=== PATIENT | male | born 1955 | race Caucasian/White ===

== ENCOUNTER → 2019-06-13 | Outpatient (CLI) | payer OTHER ==
[2019-06-13 12:40] LABS: CALCIUM 9.2 mg/dL (8.5-10.1); CREATININE 1.2 mg/dL (0.6-1.3); POTASSIUM 4.6 mmol/L (3.5-5.1)
== END ==
LOC: M.LAB 11:24
PROVIDERS: Registered Nurse
DX: I25.10 Atherosclerotic heart disease of native coronary artery without angina pectoris (principal)

== ENCOUNTER 2019-06-28 09:28 | Observation (INO) | payer OTHER ==
[~2019-06-28] VITALS: Ht 182.9 cm; Wt 127.0 kg
[2019-06-28] VITALS (12 sets, daily range): BP systolic 95–125; BP diastolic 54–79
--- NOTE | ~2019-06-28 | H ---
[address] [address] HISTORY AND PHYSICAL Name: ROMAN IVORY II Room: [address] Johnathon Arteaga#: [id number] Admission: 06/28/19 Attend Phys: Alex Conti MD, Discharge: 06/29/19 Date of : 57 Report #: [id number] THIS REPORT FOR: //name// Please refer to the History and Physical performed in the physician's office. By: [id number] Records Staff DILIA /THAIS
[2019-06-28] MEDS ORDERED: LIPITOR 20 MG T20 M1 PO (09:37)
[2019-06-28] MEDS ORDERED: COREG12.5 MG PO (09:39)
[2019-06-28] MEDS ORDERED: VITAMIN D31000 UNIT PO (09:47)
[2019-06-28] MEDS ORDERED: INVOKANA300 MG PO (09:48)
[2019-06-28] MEDS ORDERED: PLAVIX 75 MG TA75 MG PO (09:49)
[2019-06-28] MEDS ORDERED: LASIX 40 MG TAB40 MG PO (09:49)
[2019-06-28] MEDS ORDERED: POTASSIUM20 PO (09:50)
[2019-06-28] MEDS ORDERED: ISOSORBIDE DINI30 MG PO (09:51)
[2019-06-28] MEDS ORDERED: OLMESARTAN-HCT1 EACH PO (09:52)
[2019-06-28] MEDS ORDERED: FLOMAX0.4 MG PO (09:53)
[2019-06-28 10:25] LABS: HEMATOCRIT 40.6 % (42.0-52.0); HEMOGLOBIN 13.7 gm/dL (14.0-18.0); MCH 27.6 pg (26.0-34.0); MCHC 33.8 g/dL (28.0-37.0); MCV 81.6 fL (80.0-100.0); MPV 7.7 fl. (7.2-11.1); RBC 4.98 mil/uL (4.50-6.00); RDW-CV 15.7 % (10.5-14.5); WBC 7.2 thou/uL (4.0-11.0)
[2019-06-28] MEDS ORDERED: TRESIBA FL100 UNIT/1 SUBQ (10:28)
[2019-06-28] MEDS ORDERED: HUMALOG100 UNIT/1 SUBQ (10:30)
[2019-06-28 10:33] LABS: ANION GAP 6 mmol/L (7-16); BUN 18 mg/dL (7-18); CALCIUM 9.1 mg/dL (8.5-10.1); CHLORIDE 105 mmol/L (98-107); CO2 30 mmol/L (21-32); CREATININE 1.1 mg/dL (0.6-1.3); GLUCOSE 119 mg/dL (70-99); POTASSIUM 4.2 mmol/L (3.5-5.1); SODIUM 141 mmol/L (136-145)
[2019-06-28 10:34] LABS: APTT 28.3 Seconds (25.0-31.3); INR 1.1
[2019-06-28 10:37] LABS: ALBUMIN 3.3 g/dL (3.4-5.0); ALKALINE PHOSPHATASE 86 U/L (46-116); CHOLESTEROL 91 mg/dL (<200); HDL CHOLESTEROL 31 mg/dL (>40); LDL CHOLESTEROL 53 mg/dL (<100); SGOT 15 U/L (15-37); SGPT 32 U/L (30-65); TC:HDL 2.9 Ratio (Not establshd); TOTAL BILIRUBIN 0.9 mg/dL (<0.1-1.0); TOTAL PROTEIN 7.5 g/dL (6.4-8.2); TRIGLYCERIDE 39 mg/dL (<150); VLDL 8 mg/dL (<40)
[2019-06-28 10:38] LABS: SERUM ASSESSMENT Clear
--- NOTE | 2019-06-28 11:03 | 2DMMODE ---
[place] [address] 2 D/M-MODE ECHOCARDIOGRAM Name: ROMAN IVORY II Room: [facility]#: [id number] Admission: 06/28/19 Attend Phys: Crystal Wong Discharge: Date of : 57 Date of Service: 06/28/19 1103 Report #: [id number] THIS REPORT FOR: //name// APPROVED REPORT Study performed: 06/28/2019 10:29:13 EXAM: Comprehensive 2D, Doppler, and color-flow Echocardiogram Patient Location: Out-Patient Status: routine BSA: 2.46 HR: 73 bpm BP: 103/61 mmHg Rhythm: NSR Other Information Study Quality: Good Indications Dyspnea 2D Dimensions IVSd: 10.72 (7-11mm) LVOT Diam: 22.54 (18-24mm) LVDd: 71.70 mm PWd: 10.84 (7-11mm) Ascending Ao: 37.05 (22-36mm) LVDs: 60.72 (25-40mm) Aortic Root: 37.40 mm Volumes Left Atrial Volume (Systole) LA ESV Index: 48.40 mL/m2 Aortic Valve AoV Peak Pankaj.: 1.08 m/s AO Peak Gr.: 4.69 mmHg LVOT Max P.30 mmHg AO Mean Gr.: 3.02 mmHg LVOT Mean P.15 mmHg LVOT Max V: 0.76 m/s AO V2 VTI: 21.02 cm LVOT Mean V: 0.49 m/s KESHAWN (VTI): 2.72 cm2 LVOT V1 VTI: 14.34 cm Mitral Valve E/A Ratio: 3.91 MV Decel. Time: 129.87 ms MV E Max Pankaj.: 1.12 m/[place] [address] 2 D/M-MODE ECHOCARDIOGRAM Name: ROMAN IVORY II Room: [facility]#: [id number] Admission: 06/28/19 Attend Phys: Crystal Wong Discharge: Date of : 57 Date of Service: 06/28/19 1103 Report #: [id number] MV PHT: 37.66 ms MVA (PHT): 5.84 cm2 TDI E/Lateral E': 11.20 E/Medial E': 18.67 Medial E' Pankaj.: 0.06 m/s Lateral E' Pankaj.: 0.10 m/s Pulmonary Valve PV Peak Pankaj.: 0.71 m/s PV Peak Gr.: 2.03 mmHg Tricuspid Valve RAP Estimate: 5.00 mmHg TR Peak Gr.: 30.72 mmHg RVSP: 35.00 mmHg PA Pressure: 35.00 mmHg Left Ventricle Left ventricle is moderately dilated. Regional wall motion abnormalities are noted with distal septal, apical, and inferobasilar akinesis. There is normal left ventricular wall thickness. Left ventricular systolic function is moderate to severely decreased. LVEF is 30%. Grade IV - fixed restrictive diastolic dysfunction. Right Ventricle The right ventricle is normal size. The right ventricular systolic function is normal. Atria Left atrium is moderately dilated. The right atrium size is normal. Aortic Valve Mild aortic valve sclerosis. No aortic regurgitation is present. There is no aortic valvular stenosis. Mitral Valve The mitral valve is normal in structure. Mild to moderate mitral regurgitation. No evidence of mitral valve stenosis. Tricuspid Valve The tricuspid valve is normal in structure. Mild tricuspid regurgitation. Mild pulmonary hypertension. Pulmonic Valve The pulmonary valve is normal in structure. There is no pulmonic [place] [address] 2 D/M-MODE ECHOCARDIOGRAM Name: CACHORROROMAN II Room: [facility]#: [id number] Admission: 06/28/19 Attend Phys: Crystal Wong Discharge: Date of : 57 Date of Service: 06/28/19 1103 Report #: [id number] Great Vessels The aortic root is normal in size. IVC is normal in size and collapses >50% with inspiration. Pericardium There is no pericardial effusion. <Conclusion> Left ventricle is moderately dilated. There is normal left ventricular wall thickness. Left ventricular systolic function is moderate to severely decreased. LVEF is 30%. Grade IV - fixed restrictive diastolic dysfunction. The right ventricle is normal size. Left atrium is moderately dilated. Mild aortic valve sclerosis. No aortic regurgitation is present. There is no aortic valvular stenosis. The mitral valve is normal in structure. Mild to moderate mitral regurgitation. The tricuspid valve is normal in structure. Mild tricuspid regurgitation. Mild pulmonary hypertension. IVC is normal in size and collapses >50% with inspiration. There is no pericardial effusion. Regional wall motion abnormalities are noted with distal septal, apical, and inferobasilar akinesis. <ELECTRONICALLY SIGNED> By: Alex Conti MD, FACC 06/28/19 1103 02 02 Alex Conti MD, FACC /INF
--- NOTE | 2019-06-28 11:41 | EKG ---
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1955 Requested By: Alex Conti Order Number: [id number] Reading MD: Karsten Fitch Measurements Intervals [place] Rate: 72 P: 41 VA: 228 QRS: -3 QRSD: 124 T: 89 QT: 418 QTc: 458 Interpretive Statements Sinus rhythm Prolonged VA interval Probable left atrial enlargement Anteroseptal infarct old, possible No previous ECG available for comparison Electronically Signed On 06-28-2019 11:40:49 MARKETING ADMINISTRATOR by Karsten Fitch [email or web address] <ELECTRONICALLY SIGNED> By: Karsten Fitch MD, [facility] 06/28/19 1140 1030 1030 Karsten Fitch MD, FACC /EPI
--- NOTE | 2019-06-28 14:53 | NUR ---
PT ARRIVED FROM DIGITAL MEDIA COORDINATOR AROUND 1400. ASSESSMENT COMPLETED CHARTED. VITAL SIGNS BEING COMPLETED PER PROTOCOL. ABLE TO MAKE NEEDS KNOWN. AT BEDSIDE. NO C/O PAIN OR DISCOMFORT. CATH SITE C/D/I WITH NO ISSUES. IV FLUIDS RUNNING PER EMAR. WILL CONTINUE TO MONITOR.
--- NOTE | 2019-06-28 15:43 | EKG ---
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 Specialist: : 1955 Requested By: Alex Conti Order Number: [id number] Jose J MD: Karsten Fitch Measurements Intervals [place] Rate: 73 P: 43 AR: 240 QRS: 2 QRSD: 117 T: 57 QT: 423 QTc: 467 Interpretive Statements Sinus rhythm Prolonged AR interval Probable left atrial enlargement Incomplete left bundle branch block Low voltage, extremity leads Consider anterior infarct Compared to ECG 06/28/2019 10:30:57 Left bundle-branch block now present Low QRS voltage now present Myocardial infarct finding still present Electronically Signed On 06-28-2019 15:43:49 SEGMENT PRODUCER by Karsten Fitch [email or web address] <ELECTRONICALLY SIGNED> By: Karsten Fitch MD, FACC 06/28/19 1543 1317 1317 Karsten Fitch MD, FACC /EPI
[2019-06-29 00:16] VITALS: BP 131/90
[2019-06-29 03:08] LABS: GLYCOHEMOGLOBIN (HGB A1C) 6.2 % (4.8-5.6)
[2019-06-29 03:36] LABS: HEMATOCRIT 41.1 % (42.0-52.0); HEMOGLOBIN 13.5 gm/dL (14.0-18.0); MCHC 32.8 g/dL (28.0-37.0); MCV 82.3 fL (80.0-100.0); MPV 7.3 fl. (7.2-11.1); RBC 4.99 mil/uL (4.50-6.00); RDW-CV 16.1 % (10.5-14.5); WBC 7.1 thou/uL (4.0-11.0)
[2019-06-29 03:50] LABS: ALBUMIN 3.2 g/dL (3.4-5.0); CALCIUM 9.1 mg/dL (8.5-10.1); CREATININE 1.1 mg/dL (0.6-1.3); POTASSIUM 4.7 mmol/L (3.5-5.1); TOTAL PROTEIN 7.3 g/dL (6.4-8.2)
[2019-06-29 04:00] VITALS: BP 129/88
[2019-06-29 04:05] LABS: TROPONIN-I LEVEL 1.23 ng/mL (<0.06)
--- NOTE | 2019-06-29 06:00 | NUR ---
ASSUMED PATIENT CARE AT 1900. ASSESSMENT COMPLETED CHARTED. VSS. PATIENT IS SR/1D/PVCS/TRIGEMINY ON MONITOR. POST-CATH SITE CDI, NO BLEEDING OR HEMATOMA NOTED. HOURLY ROUNDING IN PLACE FOR PATIENT SAFETY. CLWR.
--- NOTE | 2019-06-29 07:20 | NUR ---
CHANGE OF SHIFT BEDSIDE REPORT GIVEN PATIENT SEEN AT BEDSIDE, IN BED ASLEEP ASSUMED PATIENT CARE
[2019-06-29 08:00] VITALS: BP 135/78
[2019-06-29] MEDS ORDERED: NITROSTAT0.4 M1 SUBLING (10:19)
[2019-06-29] MEDS ORDERED: ASA81BEC PO (10:20)
--- NOTE | 2019-06-29 11:31 | NUR ---
PATIENT DISCHARGED TO HOME ALL DISCHARGE INSTRUCTIONS GIVEN, ACKNOWLEDGED, SIGNED COPIES GIVEN IV AND HEART MONITOR REMOVED PERSONAL BELONGINGS RETURNED PATIENT ESCORTED AMBULATORY TO [facility]
--- NOTE | 2019-06-29 13:59 | EKG ---
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1955 Requested By: Alex Conti Order Number: [id number] Reading MD: Alex Conti Measurements Intervals [place] Rate: 90 P: 31 ND: 223 QRS: -5 QRSD: 116 T: 102 QT: 390 QTc: 478 Interpretive Statements Sinus rhythm Multiform ventricular premature complexes Prolonged ND interval Nonspecific intraventricular conduction delay Low voltage, extremity and precordial leads Anteroseptal infarct, old possible Nonspecific T abnormalities, lateral leads Compared to ECG 06/28/2019 13:17:31 Ventricular premature complex(es) now present T-wave abnormality now present Left bundle-branch block no longer present Myocardial infarct finding still present Electronically Signed On 06-29-2019 13:59:19 RESOLUTION ANALYST by Alex Conti [email or web address] <ELECTRONICALLY SIGNED> By: Alex Conti MD, [facility] 06/29/19 1359 0500 0500 Alex Conti MD, [facility] /EPI
--- NOTE | 2019-06-29 14:30 | CARD ---
[address] [address] CARDIAC CATH REPORT Name: ROMAN IVORY II Room: [address] Johnathon Arteaga#: [id number] Admission: 06/28/19 Attend Phys: Alex Conti MD, Discharge: 06/29/19 Date of : 57 Report #: [id number] THIS REPORT FOR: //name// APPROVED REPORT Study performed: 06/28/2019 10:06:24 Patient Details Patient Status: Out-Patient Room #: The patient is a 63 year-old male Event Personnel Pieter King RTR Monitor, Keisha Manjarrez RN, Roly PatricioubGallito John Dough Maker, Sheba Connell RTR Monitor Procedures Performed Left Heart Cath w/or w/o Coronaries [id number] [facility] Place w/wo Plasty Single CIRC [id number] SHELBY w/Atherectomy Single CIRC C9602 DESATH Hemostasis w/ Angioseal Indication Unstable angina Risk Factors Obesity, Hypercholesterolemia, Hypertension, Diabetes Previous Procedures/Diagnoses Previous PCI, Previous FL Admission/Lab Medications/Medications given during procedure Angiomax bolus and infusion Procedure Narrative The patient was brought electively to the Cardiac Catheterization Laboratory and was prepped and draped in a sterile manner. The right femoral was infiltrated with 2% Lidocaine subcutaneous anesthesia. A Kilmichael 6 FR sheath was inserted into the right femoral artery. Coronary angiography was performed using coronary diagnostic catheters. The right coronary system was accessed and visualized with a Diagnostic 6Fr JR4 catheter. The left coronary system was accessed and visualized with a Diagnostic 6Fr JL4 catheter. The left ventricle was accessed and visualized with a Diagnostic 6Fr St PIG catheter. Left ventricular/Aortic Valve gradient assessed via catheter pullback. Pre-demployment femoral angiogram was [place] [address] CARDIAC CATH REPORT Name: ROMAN IVORY II Room: [address]#: [id number] Admission: 06/28/19 Attend Phys: Alex Conti MD, Discharge: 06/29/19 Date of : 57 Report #: [id number] device was deployed with a 6 Fr Angioseal. The patient tolerated the procedure well and there were no complications associated with the procedure. There was no hematoma. Intraoperative Conscious Sedation Sedation start time: 11:02am Case end Time: 12:16pm Fentanyl 25 mcg Versed 1 mg Dose: 3369.93 mGy Contrast Type and Amount: Visipaque 350 ml Diagnostic Cath Left Main Widely patent proximal left main stent with 0% left main narrowing LAD 100% mid vessel occlusion Circumflex Prominent though nondominant vessel with tandem 90 and 80% mid vessel stenoses tubular 50% mid to distal LAD narrowing and 80% focal distal circumflex stenosis; there was 80% narrowing of a modest size first posterolateral branch of the circumflex Right Coronary Dominant vessel with 40% narrowing and 100% occlusion of the midportion of the posterior descending branch of the distal right coronary artery Left Ventriculography Left Ventriculography was not performed. Hemodynamics The aortic pressure is 108/36 mmHg with a mean of 30 mmHg. The left ventricular pressure is 130/20 mmHg with a mean of mmHg. The left ventricular end diastolic pressure is 35 mmHg. There was no gradient across the aortic valve upon pullback. PCI Technique Lesion Anticoagulation was achieved with Angiomax. Patient was preloaded with Angiomax IV 19 ml. Percutaneous coronary intervention was performed on the mid circumflex artery . The lesion stenosis prior to intervention was 90% with ARNEL 3 flow. A 6FR XB 3.5 100CM Guide Catheter was used to engage the ostium. A IG: BMW 190cm Interventional Guidewire was used to cross the lesion. BALLOON DILATION A Balloon catheter NC Trek RX 2.5 X 12, 2.5x6 angiosculpt was inserted and inflated up to 16.00atm for 14seconds. Additional Inflation: 20.00atm for 13seconds. Additional Inflation: 16.00atm [place] 10[place]. [place] [address] CARDIAC CATH REPORT Name: ROMAN IVORY II Room: [address] Johnathon Arteaga#: [id number] Admission: 06/28/19 Attend Phys: Alex Conti MD, Discharge: 06/29/19 Date of : 57 Report #: [id number] STENT DEPLOYMENT A drug-eluting stent 2.5x30 orsiro was inserted and inflated up to 16.00atm for 14seconds. Additional Inflation: 18.00atm for 17seconds. Additional Inflation: 20.00atm for 20seconds. Final angiography reveals 10 % stenosis with ARNEL 3 flow. COMMENTS The procedure was complex by virtue of the diffuse nature of the circumflex disease with heavy calcification requiring significant plaque modification prior to stent deployment PCI Technique Lesion 2 Percutaneous Coronary Intervention was performed on the distal circumflex artery segment. The lesion stenosis prior to intervention was 80% with ARNEL 3 flow. Stent Deployment A bare metaldrug-eluting stent Moris RX Stent 2.25X8mm was inserted and inflated up to 14atm for 15seconds. Post Stent Deployment Balloon Dilation A Balloon catheter NC Trek RX 2.25 X 8 was inserted and inflated up to 18atm for 10seconds. Final angiography reveals 10 % stenosis with ARNEL 2 flow. Conclusion #1 significant multivessel coronary artery disease characterized by the following: A 100% mid LAD occlusion B prominent though nondominant circumflex with tandem 90 and 80% calcified mid vessel stenoses followed by 50% mid vessel narrowing and 90% very distal circumflex stenosis; there is a tubular 80% narrowing of the proximal portion of the first posterolateral branch C dominant right coronary artery with 40% mid vessel narrowing and 100% posterior descending branch occlusion #2 severe elevation of left end-diastolic [place] [address] CARDIAC CATH REPORT Name: ROMAN IVORY II Room: [address] Johnathon Arteaga#: [id number] Admission: 06/28/19 Attend Phys: Alex Conti MD, Discharge: 06/29/19 Date of : 57 Report #: [id number] #3 successful atherotomy/atherectomy with stenting of the mid circumflex with 10% residual narrowing #4 successful percutaneous coronary intervention with stenting of the distal circumflex with 10% residual narrowing Recommendations Cardiac Risk Reduction Program Aggressive Medical Therapy Weight Loss Reduction Program Medications Administered Aspirin (any) Clopidogrel Diagnostic Cath Approved by: Alex Conti MD Date/Time: 06/29/2019 14:28:23 <ELECTRONICALLY SIGNED> By: Alex Conti MD, FACC 06/29/19 1429 1429 1429Alex Conti MD, FACC /INF
--- NOTE | 2019-06-30 11:30 | D ---
[address] [address] DISCHARGE SUMMARY Name: ROMAN IVORY II Room: [address] Johnathon Arteaga#: [id number] Admission: 06/28/19 Attend Phys: Alex Conti MD, Discharge: 06/29/19 Date of : 57 Report #: [id number] THIS REPORT FOR: //name// CC: Fabiana Conti DATE OF SERVICE: 06/29/2019 FINAL DISCHARGE DIAGNOSES: 1. Unstable angina. 2. Ischemic cardiomyopathy. 3. Chronic combined heart failure. 4. Coronary artery disease. 5. Status post multiple percutaneous coronary interventions, most recently to the circumflex on 06/28/2019. 6. Type 2 diabetes. 7. Hyperlipidemia. 8. Exogenous obesity. PROCEDURES: 06/28/2019 -- left heart catheterization, selective coronary arteriography and percutaneous coronary intervention with deployment of stents in the mid and distal circumflex after atherectomy of the mid circumflex. HOSPITAL COURSE: The patient is a 63-year-old male with complex coronary artery disease, presenting remotely with an inferior infarction. He has had prior total occlusions of the LAD and distal right coronary artery. In 2013, a stent of the ostial and proximal left main in the context of an acute coronary syndrome with unstable angina. He presented recently with exacerbation of symptoms of heart failure with marked dyspnea. This has always been his anginal equivalent. In this context, he underwent cardiac catheterization on 06/28/2019 which revealed total mid LAD occlusion, total distal right coronary artery occlusion, this being a chronic phenomenon. The left main stent was widely patent. He had 90% focal mid circumflex stenosis followed by 80% stenosis with tubular 50% mid to distal narrowing and an 80-90% distal circumflex stenosis. I performed atherectomy with stenting of the mid circumflex with 10% residual narrowing and angioplasty with stenting of the distal circumflex with 10% residual narrowing. He did well postprocedurally with a minimal increase in troponin to 1.23. He ambulated in the hallways without difficulty with good hemostasis at the right femoral site of catheterization. LABORATORY DATA: Laboratory on 06/29 revealed sodium 141, potassium 4.7, BUN 18, creatinine 1.1, hemoglobin 13.5, white blood cell count 7100 with 126,000 [place] [address] DISCHARGE SUMMARY Name: SPEEDYROMAN RUSSELL II [address] [id number] Admission: 06/28/19 Attend Phys: Alex Conti MD, Discharge: 06/29/19 Date of : 57 Report #: [id number] DISCHARGE MEDICATIONS: He was discharged to home on the following medications: Aspirin 81 mg daily, atorvastatin 20 mg daily, Invokana 300 mg daily, Coreg 12.5 mg b.i.d., cholecalciferol vitamin D3 1000 units daily, clopidogrel or Plavix 75 mg daily with a 600 mg lucia-procedural dose, furosemide 40 mg daily, insulin degludec 40 units b.i.d., Humalog insulin 15 units a.c., isosorbide dinitrate 30 mg daily, olmesartan/hydrochlorothiazide 20/12.5 0.5 tablets daily, potassium chloride 20 mEq daily, tamsulosin 0.4 mg daily. FOLLOWUP INSTRUCTIONS: He is scheduled to return to see my nurse practitioner on 07/09/2019 at 1330 with a thought of institution of Entresto therapy at that time. I will plan to see him on 08/21/2019 at 11:30, both visits being at the [place] office. Therefore, the patient is discharged to in stable condition on the above described medications with followup as iterated above. <ELECTRONICALLY SIGNED> By: Alex Conti MD, FACC 06/30/19 1130 1000 1027Jomica Conti MD, FACC /nt
== END 2019-06-29 11:47 | disposition home or self-care (01) ==
LOC: M.CL 09:28 → M.TBA-CV 12:42 → M.2W 12:42 → M.TBA-CV 12:42 → M.2W 13:35
PROVIDERS: ADMIT Internal Medicine
DX: I25.110 Atherosclerotic heart disease of native coronary artery with unstable angina pectoris (principal); I42.9 Cardiomyopathy, unspecified; E11.39 Type 2 diabetes mellitus with other diabetic ophthalmic complication; I11.0 Hypertensive heart disease with heart failure; I50.42 Chronic combined systolic (congestive) and diastolic (congestive) heart failure; E78.2 Mixed hyperlipidemia; I25.2 Old myocardial infarction; E66.09 Other obesity due to excess calories; Z68.38 Body mass index [BMI] 38.0-38.9, adult; Z79.82 Long term (current) use of aspirin; Z79.4 Long term (current) use of insulin; Z79.899 Other long term (current) drug therapy

== ENCOUNTER → 2019-07-09 | Outpatient (CLI) | payer OTHER ==
[~2019-07-09] MED LIST: ASA81BEC PO; COREG12.5 MG PO; FLOMAX0.4 MG PO; HUMALOG100 UNIT/1 SUBQ; INVOKANA300 MG PO; ISOSORBIDE DINI30 MG PO; LASIX 40 MG TAB40 MG PO; LIPITOR 20 MG T20 M1 PO; NITROSTAT0.4 M1 SUBLING; OLMESARTAN-HCT1 EACH PO; PLAVIX 75 MG TA75 MG PO; POTASSIUM20 PO; TRESIBA FL100 UNIT/1 SUBQ; VITAMIN D31000 UNIT PO
== END ==
LOC: M.RAD 14:35
DX: J98.11 Atelectasis (principal); I51.7 Cardiomegaly; I25.5 Ischemic cardiomyopathy

== ENCOUNTER 2021-06-15 11:29 | Inpatient (IN) | payer OTHER ==
[~2021-06-15] VITALS: Ht 182.9 cm; Wt 139.7 kg
[2021-06-15 11:35] VITALS: BP 115/64
[2021-06-15] MEDS ORDERED: BENICAR20 MG PO (11:46)
[2021-06-15] MEDS ORDERED: JARDIANCE25 MG PO (11:46)
[2021-06-15] MEDS ORDERED: TOUJEO MAX300 UNIT/1 SUBQ (11:47)
[2021-06-15] MEDS ORDERED: HUMALOG100 UNIT/1 SUBQ (11:47)
[2021-06-15] MEDS ORDERED: ENTRESTO 49 MG1 EACH PO (11:48)
[2021-06-15] MEDS ORDERED: NEURONTIN300 MG PO (11:48)
[2021-06-15 11:59] LABS: ABSOLUTE EOSINOPHILS 0.3 thou/uL (0.0-0.7); ABSOLUTE LYMPHOCYTES 0.8 thou/uL (0.8-5.3); ABSOLUTE MONOCYTES 0.5 thou/uL (0.0-1.2); ABSOLUTE NEUTROPHILS 5.2 thou/uL (1.6-8.1); BASOPHILS 0.6 %; EOSINOPHILS 4.6 %; HEMATOCRIT 42.2 % (42.0-52.0); LYMPHOCYTES 11.6 %; MCH 28.2 pg (26.0-34.0); MCHC 33.2 g/dL (28.0-37.0); MONOCYTES 6.8 %; MPV 7.3 fl. (7.2-11.1); NUCLEATED RBCS 0 /100WBC; PLATELET COUNT* 291 thou/uL (150-400); POLYS 76.4 %; RBC 4.97 mil/uL (4.50-6.00); RDW-CV 15.6 % (10.5-14.5); WBC 6.8 thou/uL (4.0-11.0)
[2021-06-15 12:19] LABS: CALCIUM 8.6 mg/dL (8.5-10.1); CREATININE 1.2 mg/dL (0.6-1.3); POTASSIUM 4.1 mmol/L (3.5-5.1)
--- NOTE | 2021-06-15 12:29 | EKG ---
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1955 Requested By: Danny Mcguire Order Number: [id number] MD: Ant Barlow Measurements Intervals [place] Rate: 89 P: 33 NC: 227 QRS: 31 QRSD: 120 T: 80 QT: 388 QTc: 473 Interpretive Statements Sinus rhythm low voltage Prolonged NC interval Nonspecific intraventricular conduction delay Anteroseptal infarct, old Compared to ECG 06/29/2019 05:00:02 Ventricular premature complex(es) no longer present Myocardial infarct finding still present Electronically Signed On 06-15-2021 12:29:39 FIRESTOPPER TECHNICIAN by Ant Barlow [email or web address] <ELECTRONICALLY SIGNED> By: Ant Barlow MD, [facility] 06/15/21 1229 1135 1135 Ant Barlow MD, [facility] /EPI
[2021-06-15 12:30] LABS: ALBUMIN 3.2 g/dL (3.4-5.0); MAGNESIUM 2.1 mg/dL (1.8-2.4); TOTAL BILIRUBIN 0.8 mg/dL (<0.1-1.0); TOTAL PROTEIN 7.9 g/dL (6.4-8.2)
--- NOTE | 2021-06-15 17:00 | 2DMMODE ---
[place] [address] 2 D/M-MODE ECHOCARDIOGRAM Name: ROMAN IVORY II Room: [address] [place]#: [id number] Admission: 06/15/21 Attend Phys: Yamile Hogan, Discharge: Date of : 57 Date of Service: 06/15/21 1700 Report #: [id number] THIS REPORT FOR: cc: Fabiana Lux MD, Jennifer L MD Blick,Ant Maldonado MD [facility] ~ APPROVED REPORT Study performed: 06/15/2021 15:42:57 EXAM: Comprehensive 2D, Doppler, and color-flow Echocardiogram Patient Location: In-Patient Room #: ER Status: routine BSA: 2.46 HR: 87 bpm BP: 112/67 mmHg Rhythm: NSR Other Information Study Quality: Good Indications Congestive Heart Failure 2D Dimensions IVSd: 15.02 (7-11mm) LVOT Diam: 23.51 (18-24mm) LVDd: 64.83 mm PWd: 12.98 (7-11mm) Ascending Ao: 38.07 (22-36mm) LVDs: 55.09 (25-40mm) Aortic Root: 37.37 mm Volumes Left Atrial Volume (Systole) LA ESV Index: 35.80 mL/m2 Aortic Valve AoV Peak Pankaj.: 0.95 m/s AO Peak Gr.: 3.64 mmHg LVOT Max P.02 mmHg AO Mean Gr.: 2.26 mmHg LVOT Mean P.98 mmHg LVOT Max V: 0.71 m/s AO V2 VTI: 17.66 cm LVOT Mean V: 0.45 m/s KESHAWN (VTI): 2.79 cm2 LVOT V1 VTI: 11.35 [place] [address] 2 D/M-MODE ECHOCARDIOGRAM Name: ROMAN IVORY II Room: [address] [place] [facility]#: [id number] Admission: 06/15/21 Attend Phys: Yamile Hogan, Discharge: Date of : 57 Date of Service: 06/15/21 1700 Report #: [id number] Mitral Valve MV Decel. Time: 163.50 ms MV PHT: 47.41 ms MVA (PHT): 4.64 cm2 TDI Medial E' Pankaj.: 0.09 m/s Lateral E' Pankaj.: 0.10 m/s Pulmonary Valve PV Peak Pankaj.: 0.68 m/s PV Peak Gr.: 1.82 mmHg Tricuspid Valve RAP Estimate: 5.00 mmHg TR Peak Gr.: 51.53 mmHg RVSP: 56.00 mmHg PA Pressure: 56.00 mmHg Left Ventricle Left ventricle is moderately dilated. There is global hypokinesis of the left ventricle. Mild concentric left ventricular hypertrophy. Left ventricular systolic function is severely decreased. LVEF is 20-25%. Grade IV - fixed restrictive diastolic dysfunction. Right Ventricle The right ventricle is normal size. The right ventricular systolic function is normal. Atria Left atrium is mildly dilated. The right atrium size is normal. Aortic Valve Mild aortic valve sclerosis. No aortic regurgitation is present. There is no aortic valvular stenosis. Mitral Valve The mitral valve is normal in structure. Trace mitral regurgitation. No evidence of mitral valve stenosis. Tricuspid Valve The tricuspid valve is normal in structure. Moderate tricuspid regurgitation. estimated pa pressure 65 mm Hg Pulmonic Valve The pulmonary valve is normal in structure. There is trace pulmonic [place] [address] 2 D/M-MODE ECHOCARDIOGRAM Name: ROMAN IVORY II Room: [address]#: [id number] Admission: 06/15/21 Attend Phys: Yamile Hogan, Discharge: Date of : 57 Date of Service: 06/15/21 1700 Report #: [id number] Great Vessels The aortic root is normal in size. The ascending aorta is mildly dilated. IVC is normal in size and collapses >50% with inspiration. Pericardium There is no pericardial effusion. <Conclusion> Left ventricle is moderately dilated. Mild concentric left ventricular hypertrophy. LVEF is 20-25%. Left atrium is mildly dilated. Mild aortic valve sclerosis. Trace mitral regurgitation. Moderate tricuspid regurgitation. estimated pa pressure 65 mm Hg <ELECTRONICALLY SIGNED> By: Ant Barlow MD, FACC 06/15/211699 99 99 Ant Barlow MD, FACC /INF
[2021-06-15 17:29] VITALS: BP 119/75
--- NOTE | 2021-06-15 19:00 | NUR ---
REPORT GIVEN TO CINDY, WHOM ASSUMED PATIENT CARE AT THIS TIME. PATIENT STATES HE WOULD LIKE HIS INSULIN CLOSER TO THE TIME HE NORMALLY TAKES HIS LONG ACTING INSULIN, AROUND 2200.
[2021-06-15 20:00] VITALS: BP 100/56
[2021-06-15] MEDS ORDERED: ENTRESTO 97 MG1 EACH PO (21:09)
[2021-06-16] VITALS (8 sets, daily range): BP systolic 94–124; BP diastolic 52–74
[2021-06-16 03:42] LABS: ALBUMIN 3.1 g/dL (3.4-5.0); CALCIUM 8.8 mg/dL (8.5-10.1); CREATININE 1.1 mg/dL (0.6-1.3); MAGNESIUM 2.4 mg/dL (1.8-2.4); POTASSIUM 3.5 mmol/L (3.5-5.1); TOTAL BILIRUBIN 0.8 mg/dL (<0.1-1.0); TOTAL PROTEIN 7.4 g/dL (6.4-8.2)
[2021-06-16 03:45] LABS: CHOLESTEROL 103 mg/dL (<200); HDL CHOLESTEROL 35 mg/dL (>40); LDL CHOLESTEROL 58 mg/dL (<100); TC:HDL 2.9 Ratio (Not establshd); TRIGLYCERIDE 52 mg/dL (<150); VLDL 10 mg/dL (<40)
[2021-06-16 03:54] LABS: SERUM ASSESSMENT Clear
[2021-06-16 04:00] LABS: HEMATOCRIT 40.4 % (42.0-52.0); HEMOGLOBIN 13.5 gm/dL (14.0-18.0); MCHC 33.5 g/dL (28.0-37.0); MCV 83.5 fL (80.0-100.0); MPV 7.5 fl. (7.2-11.1); RBC 4.84 mil/uL (4.50-6.00); RDW-CV 15.5 % (10.5-14.5); WBC 5.7 thou/uL (4.0-11.0)
--- NOTE | 2021-06-16 09:53 | CON ---
[address] [address] CONSULTATION Name: CACHORROROMAN II Room: [address] IN .[place].#: [id number] Admission: 06/15/21 Attend Phys: Yamile Hogan MD Discharge: Date of : 57 Report #: [id number] THIS REPORT FOR: cc: Fabiana Lux MD, Jennifer L MD Blick, David R. MD [facility] ~ cc: Fabiana Lux MD DATE OF CONSULTATION: 06/15/2021 CARDIOLOGY CONSULTATION HISTORY OF PRESENT ILLNESS: The patient is a 65-year-old white male who I was asked to see in the Emergency Room after he complained of fatigue. The history is obtained from the patient as well as some old records. The patient notes that he had a heart attack years ago at [facility] and Dr. Conti placed coronary stents. He apparently had atrial fibrillation at that time. He has had several stents since that time. His last stent was a couple years ago. He actually saw Dr. Conti in January of this year. He apparently had a nuclear stress test in [facility]. The patient is not very active at this time. Recently, he has complained of fatigue and having no energy. He has been short of breath and has noticed some edema. Denied palpitation or syncope. He went to see Dr. Lux today to have lab drawn and she performed an ECG and the ECG interpretation was atrial flutter. He was told to drive his vehicle from Dr. Lux's office in [place] to [facility], where he was admitted for further evaluation and treatment. Denies any recent chest pain, medical noncompliance, palpitations, syncope, fever, cough, bleeding. PAST MEDICAL HISTORY: Otherwise, significant for carpal tunnel release. He has a history of hypertension, diabetes, hyperlipidemia. CURRENT MEDICATIONS: Include Lipitor, Invokana, carvedilol, Plavix, Lasix, Neurontin, insulin, potassium, Entresto. ALLERGIES: He has no known drug allergies. FAMILY HISTORY: His brother of heart failure. SOCIAL HISTORY: He is . He and his live in [place], [place]. 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 No smoking. No alcohol abuse. REVIEW OF SYSTEMS: He is overweight being 5 feet 11 inches, 300 pounds. There is no history of sleep apnea, stroke, asthma, liver disease, kidney disease, cancer, psychiatric illness. [place] [address] CONSULTATION Name: CACHORROROMAN Alberto II Room: [address] IN [facility]#: [id number] Admission: 06/15/21 Attend Phys: Yamile Hogan MD Discharge: Date of : 57 Report #: [id number] PHYSICAL EXAMINATION: GENERAL: Revealed a large, overweight male, appeared in no acute distress. VITAL SIGNS: He had a blood pressure of 120/60, pulse is 80, he is afebrile. HEENT: He was anicteric. Conjunctivae pink. Mucosa moist. NECK: Veins do not appear distended. No carotid bruits. Neck is supple. CHEST: Clear to auscultation. CARDIAC: Regular rate and rhythm. No murmur. ABDOMEN: Obese. EXTREMITIES: Had 1+ pitting edema. SKIN: Cool and dry. DIAGNOSTIC DATA: ECG from this morning at Dr. Lux's office appears to show sinus rhythm, first-degree AV block and nonspecific intraventricular conduction defect. ECG when he arrived to [facility] at 11:35 again showed a sinus rhythm, first-degree AV block, evidence of previous anterior infarction. His workup, he had an echocardiogram done in 2019 here at [facility] that showed an ejection fraction of 30%, atrial enlargement, aortic sclerosis, mild mitral regurgitation. His x-rays in the Emergency Room today showed cardiomegaly, pulmonary edema. LABORATORY DATA: His lab work, potassium 4.1, creatinine 1.2. High-sensitivity troponin was 28. BNP 1785. His hemoglobin 14. COVID antigen stat test was negative. IMPRESSION AND RECOMMENDATIONS: 1. Acute on chronic systolic heart failure. Recommend IV Lasix. The patient is on a beta alena and Entresto. I would recommend adding Aldactone. If he continues to have cardiomyopathy, I will consider a defibrillator. 2. Coronary artery disease. Many stents in the past. No recent angina. The patient apparently had a stress test last summer at [facility]. I will attempt to obtain those records. I would continue Plavix. 3. Diabetes. 4. Hypertension. The patient is on a beta alena and ARB. 5. Hyperlipidemia. The patient is on a statin drug. 6. Morbid obesity. 7. History of atrial fibrillation. Currently in sinus rhythm. <ELECTRONICALLY SIGNED> By: Ant Barlow MD, FACC 06/16/21 [id number] Barlow MD, FACC /nt
--- NOTE | 2021-06-16 17:24 | NUR ---
WOUND NURSE: ASSISTED PHYSICIAN WITH WOUND CARE. IDENTIFIEDRIGHT GREAT TOE DIABETIC FOOT ULCER, FULL THICKNESS UNDERNEATH A SMALL SCAB AND POST DEBRIDEMENT MEASURES 0.5 X 0.5 X 0.3 CM. SCANT SANGUINOUS DRAINAGE. PERFORMED EXCISIONAL DEBRIDEMENT. WOUND WAS NOT IDENTIFIED OR PHOTOGRAPHED PRIOR TO PHYSICIAN ARRIVAL. LEFT MEDIAL MALLEOLUS SCABS REMOVED BY AND NEW MEASUREMENT SMALLER POST DEBRIDEMENT. PRESENTS WITH SHALLOW EROSION AND RED, NONGRANULATING TISSUE IN THE WOUND BED. RIGHT TIBIA PRESENTED WITH SCAB REMOVED BY AND EXPOSING INTACT PINK SCAR UNDERNEATH. GIRTH MEASUREMENTS OF BLE FOLLOWS: R/L: FOREFOOT: 29/29; ANKLE: 29.5/30; CALF: 41.5/44 CM. PEDAL PULSES WERE MONOPHASIC WITH DOPLER CHECK. TOES PINK AND CAP REFILL < 3 SEC. PATIENT INSTRUCTED ON POTENTIAL COMPLICATIONS TO REPORT IF OCCURS. HE STATES HE UNDERSTANDS. WOUND CARE AND COMPRESSION PERFORMED PRESCRIBED.
[2021-06-17 00:38] VITALS: BP 101/52
[2021-06-17 04:38] VITALS: BP 107/61
[2021-06-17 04:47] LABS: HEMATOCRIT 42.9 % (42.0-52.0); HEMOGLOBIN 14.2 gm/dL (14.0-18.0); MCHC 33.1 g/dL (28.0-37.0); MCV 84.8 fL (80.0-100.0); MPV 7.5 fl. (7.2-11.1); RBC 5.06 mil/uL (4.50-6.00); RDW-CV 15.7 % (10.5-14.5); WBC 5.6 thou/uL (4.0-11.0)
[2021-06-17 05:26] LABS: CALCIUM 9.1 mg/dL (8.5-10.1); CREATININE 1.1 mg/dL (0.6-1.3); MAGNESIUM 2.4 mg/dL (1.8-2.4); POTASSIUM 3.8 mmol/L (3.5-5.1)
--- NOTE | 2021-06-17 05:34 | NUR ---
PT CAME OUT OF ROOM AT 0430 STATING HE WASNT FEELING WELL, BLOOD SUGAR CHECKED IT WAS AT 46, JUICE GIVEN RECHECKED AT 0500 WAS88. HE IS UP AD AUSTEN, ALERT AND ORIENTED, NO OTHER REPORTS OF PAIN OR NAUSEA THIS SHIFT. HE REMAINED SR ON MONITOR WITH 1ST DEGREE BLOCK. VSS STABLE. RECEIVED MEDS SCHEDULED. SLEPT WELL ALL SHIFT. WILL CONTINUE TO MONITOR.
[2021-06-17 07:40] VITALS: BP 106/54
--- NOTE | 2021-06-17 10:01 | NUR ---
CM ASSESSMENT: PT A&O, INDEPENDENT WITH ADL'S, ACTIVE AND DRIVES. PT RESIDES AT HOME WITH SPOUSE. PT USES 0 DME. PT HAS 0 HX OF HH OR SNF. NO CM D/C PLANNING NEEDS ANTICIPATED AT THIS TIME. CM WILL REMAIN AVAILABLE TO ASSIST AND FOLLOW NEEDED.
[2021-06-17 11:30] VITALS: BP 94/51
--- NOTE | 2021-06-17 13:40 | NUR ---
ASSUMED CARE OF PT AT 0730. A&0X4, DENIES ANY PAIN OR SHORTNESS OF BREATH AT THIS TIME. TRACING SR WITH FIRST DEGREE ON THE GRAIN SAMPLER. ON RA SAT UPPER 90'S. PT UP AD AUSTEN IN ROOM. PT GOAL FOR TODAY IS DIURESIS AND DISCHARGE PLANNING. AM ASSESSMENT CHARTED. MEDICATIONS PER OCT. PT REPOSITIONS SELF. HOURLY ROUNDING OBSERVED. BED IN LOW POSITION. CALL LIGHT WITHIN REACH. WILL CONTINUE PLAN OF CARE.
[2021-06-17 16:42] VITALS: BP 101/60
[2021-06-17 19:40] VITALS: BP 94/53
[2021-06-18 00:52] VITALS: BP 100/55
--- NOTE | 2021-06-18 04:05 | NUR ---
ASSUMED CARE OF PT AT 1900. PT IS ALERT AND ORIENTED. VSS. PERRLA. NO COMPLAINTS OF PAIN. PT IS ON ROOM AIR. PT IS IN SINUS RYTHM ON THE TELEMETRY. PT IS RESTING COMFORTABLY IN BED. RESPIRATIONS ARE EVEN AND NONLABORED. WILL CONTINUE TO MONITOR PT.
[2021-06-18 04:32] VITALS: BP 107/66
[2021-06-18 08:26] VITALS: BP 117/63
--- NOTE | 2021-06-18 11:35 | NUR ---
Nutrition: Consult received for "diabetic." Pt stated he has had DM for a long time, and it is fairly well controlled. He said his BG runs <100 at home, last A1c recorded is 6.2%. He seemed fairly knowledgeable about CHOs and diet. He said he is eating well. Wt: 308#. Albumin 3.1, BG ok. Takes insulin. We briefly discussed CHO sources. Left DM diet info with pt and RD contact info. Consider low nutrition risk.
[2021-06-18 12:00] VITALS: BP 100/62
[2021-06-18] MEDS ORDERED: SPIRONOLACTONE25 MG PO (12:38)
[2021-06-18] MEDS ORDERED: FLOMAX0.4 MG PO (12:38)
[2021-06-18 13:21] VITALS: BP 100/62
--- NOTE | 2021-06-18 13:50 | NUR ---
Reviewed discharge teaching with patient; verbalized understanding. 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 Discharged from unit per WC.
--- NOTE | 2021-06-18 13:58 | NUR ---
PHYSICIAN INFORMS OF PLAN FOR THIS PT TO D/C TODAY HOME WITH SELF-CARE. NO CM D/C PLANNING NEEDS ANTICIPATED. CM WILL REMAIN AVAILABLE TO ASSIST AND FOLLOW NEEDED.
--- NOTE | 2021-06-18 16:09 | NUR ---
WOUND NURSE: PATIENT WASS REASSESSED THIS MORNING AND OPTED TO CHANGE THE 4 LAYER COMPRESSION WRAPS AND DRESSING TO LLE AND LT GT AT 9:00 AM. ALSO REMOVED AND REAPPLIED 4 LAYER COMPRESSION WRAP TO RLE. LLE WOUND IMPROVING AND GREAT TOE HEALING ALSO (SMALLLER AND MORE SHALLOW WOUND OPENING. L MEDIAL MALLEOLAR WOUND SHALLOW AND IMPROVING WITH FAVORABLE PROGRESS TOWARD HEALING.
== END 2021-06-18 13:50 | disposition home or self-care (01) | DRG 622 ==
LOC: M.ERS 11:29 → M.TBA-ER 13:13 → M.2W 06-16 12:29
PROVIDERS: Family Medicine; Internal Medicine Cardiovascular Disease; ADMIT Internal Medicine; ATTEND Internal Medicine
PROC: 0JBR0ZZ Excision of Left Foot Subcutaneous Tissue and Fascia, Open Approach (ICD-10-PCS; principal; 2021-06-16)
DX: E11.621 Type 2 diabetes mellitus with foot ulcer (principal); I50.43 Acute on chronic combined systolic (congestive) and diastolic (congestive) heart failure; Z68.41 Body mass index [BMI] 40.0-44.9, adult; I42.9 Cardiomyopathy, unspecified; I25.10 Atherosclerotic heart disease of native coronary artery without angina pectoris; E78.5 Hyperlipidemia, unspecified; I87.8 Other specified disorders of veins; S80.922A Unspecified superficial injury of left lower leg, initial encounter; X58.XXXA Exposure to other specified factors, initial encounter; I48.91 Unspecified atrial fibrillation; I87.2 Venous insufficiency (chronic) (peripheral); E66.01 Morbid (severe) obesity due to excess calories; I89.0 Lymphedema, not elsewhere classified; L97.529 Non-pressure chronic ulcer of other part of left foot with unspecified severity; Z20.822 Contact with and (suspected) exposure to COVID-19; Z23 Encounter for immunization; Z95.5 Presence of coronary angioplasty implant and graft; I25.2 Old myocardial infarction; Z91.030 Bee allergy status; Z79.4 Long term (current) use of insulin; Z79.899 Other long term (current) drug therapy; Z82.49 Family history of ischemic heart disease and other diseases of the circulatory system; Y93.89 Activity, other specified; Y92.89 Other specified places as the place of occurrence of the external cause; Y99.8 Other external cause status